=== PATIENT | male | born 1980 | race African-American/Black ===

== ENCOUNTER 2023-03-07 16:15 | Inpatient (IN) | payer OTHER ==
[2023-03-07 17:26] VITALS: BMI 23.8
[2023-03-07] MEDS ORDERED: ACETAMINOPHEN 325 MG TABLET (FP) PO PRN (19:32)
[2023-03-07] MEDS ORDERED: AMMONIUM LACTATE 12% LOTION 225 GM BOTTLE TP PRN (19:32)
[2023-03-07] MEDS ORDERED: guaiFENesin 600 MG TABLET.ER (FP) PO PRN (19:32)
[2023-03-07] MEDS ORDERED: LOPERAMIDE HCL 2 MG CAPSULE PO PRN (19:32)
[2023-03-07] MEDS ORDERED: NALOXONE HCL (KLOXXADO) 8 MG SPRAY NS PRN (19:32)
[2023-03-07] MEDS ORDERED: COLLOIDAL OATMEAL 1 BAR EACH TP PRN (19:32)
[2023-03-07] MEDS ORDERED: IBUPROFEN 400 MG TABLET (FP) PO PRN (19:32)
[2023-03-07] MEDS ORDERED: POLYETHYLENE GLYCOL (HEALTHYLAX) 3350 17 GM PACKET PO PRN (19:32)
[2023-03-07] MEDS ORDERED: BENZOCAINE/MENTHOL (CHLORASEPTIC ) LOZENGE MM PRN (19:32)
[2023-03-07] MEDS ORDERED: MAGNESIUM HYDROX 2400MG/30ML ORAL SUSPENSION 30 ML CUP PO PRN (19:32)
[2023-03-07] MEDS ORDERED: NALOXONE HCL 0.4 MG/ML VIAL IM PRN (19:32)
[2023-03-07] MEDS ORDERED: IBUPROFEN 600 MG TABLET (FP) PO PRN (19:32)
[2023-03-07] MEDS ORDERED: BENZONATATE 200 MG CAPSULE PO PRN (19:32)
[2023-03-07] MEDS ORDERED: P-EPHED 60MG/TRIPROLIDI 2.5MG TABLET PO PRN (19:32)
[2023-03-07] MEDS ORDERED: NICOTINE POLACRILEX 2 MG GUM BUC PRN (19:32)
[2023-03-07] MEDS ORDERED: TUBERCULIN PPD 5 TU/0.1ML VIAL ID ONE (21:48)
[2023-03-07] MEDS: THIAMINE HCL 100 MG TABLET (FP) PO SCH (22:17)
[2023-03-07] MEDS: MELATONIN 5 MG TABLETS PO SCH (22:17)
[2023-03-07] MEDS ORDERED: TUBERCULIN PPD 5 TU/0.1ML SYRINGE (IN PATIENT USE ONLY) ID ONE (23:55)
[2023-03-08 02:33] LABS: URINE APPEARANCE CLEAR; URINE BILIRUBIN NEGATIVE (NEGATIVE); URINE COLOR YELLOW; URINE GLUCOSE (UA) NEGATIVE (NEGATIVE); URINE KETONE TRACE (NEGATIVE); URINE LEUK ESTERASE NEGATIVE (NEGATIVE); URINE NITRITE NEGATIVE (NEGATIVE); URINE PROTEIN NEGATIVE (NEGATIVE)
[2023-03-08] MEDS ORDERED: PRENATAL VITAMINS W/ FOLIC ACID TABLET (FP) PO SCH (10:00)
[2023-03-08] MEDS ORDERED: PRENATAL VITAMINS W/ FOLIC ACID TABLET (FP) PO PRN (12:47)
[2023-03-08 13:52] LABS: HEMOGLOBIN 11.7 GM/dL (11.7-16.9); MCH 22.4 pg (25.7-33.7); MCHC 32.4 g/dl (32.0-35.9); MEAN CELL VOLUME 69.1 fl (80-96); PLATELET COUNT 277 10^3/uL (134-434); RBC 5.21 M/mm3 (4.00-5.60); RDW 19.4 % (11.9-15.9); WHITE BLOOD COUNT 4.9 K/mm3 (4.0-10.0)
[2023-03-08 14:24] LABS: POTASSIUM 3.8 mmol/L (3.5-5.1)
[2023-03-08 14:26] LABS: CALCIUM 9.1 mg/dL (8.5-10.1)
[2023-03-08 14:27] LABS: ALBUMIN 3.6 g/dl (3.4-5.0); BLOOD UREA NITROGEN 19.1 mg/dL (7-18)
[2023-03-08 14:32] LABS: BILIRUBIN,TOTAL 0.2 mg/dL (0.2-1); TOT PROT 7.3 g/dl (6.4-8.2)
[2023-03-08 15:19] LABS: SYPHILIS W/ RPR CONF NON-REACTIVE (NONREACTIVE)
[2023-03-08] MEDS: THIAMINE HCL 100 MG TABLET (FP) PO SCH (21:48)
[2023-03-08] MEDS: MELATONIN 5 MG TABLETS PO SCH (21:48)
[2023-03-09] MEDS: MELATONIN 5 MG TABLETS PO SCH (21:33)
[2023-03-09] MEDS: THIAMINE HCL 100 MG TABLET (FP) PO SCH (21:33)
[2023-03-10] MEDS: MELATONIN 5 MG TABLETS PO SCH (21:14)
[2023-03-10] MEDS: THIAMINE HCL 100 MG TABLET (FP) PO SCH (21:14)
[2023-03-11] MEDS: MELATONIN 5 MG TABLETS PO SCH (21:41)
[2023-03-11] MEDS: THIAMINE HCL 100 MG TABLET (FP) PO SCH (21:41)
[2023-03-12] MEDS: MELATONIN 5 MG TABLETS PO SCH (21:07)
[2023-03-12] MEDS: THIAMINE HCL 100 MG TABLET (FP) PO SCH (21:07)
[2023-03-13] MEDS: THIAMINE HCL 100 MG TABLET (FP) PO SCH (21:26)
[2023-03-13] MEDS: MELATONIN 5 MG TABLETS PO SCH (21:26)
[2023-03-14] MEDS: THIAMINE HCL 100 MG TABLET (FP) PO SCH (21:07)
[2023-03-14] MEDS: MELATONIN 5 MG TABLETS PO SCH (21:07)
[2023-03-15] MEDS: MELATONIN 5 MG TABLETS PO SCH (21:39)
[2023-03-15] MEDS: THIAMINE HCL 100 MG TABLET (FP) PO SCH (21:39)
[2023-03-16] MEDS: THIAMINE HCL 100 MG TABLET (FP) PO SCH (21:40)
[2023-03-16] MEDS: MELATONIN 5 MG TABLETS PO SCH (21:40)
[2023-03-17] MEDS: MAG HYDROX/AL HYDROX/SIMETH 30 ML UNIT-DOSE CUP PO PRN (18:24)
[2023-03-17] MEDS: MELATONIN 5 MG TABLETS PO SCH (21:59)
[2023-03-17] MEDS: THIAMINE HCL 100 MG TABLET (FP) PO SCH (21:59)
[2023-03-17] MEDS: hydrOXYzine PAMOATE 25 MG CAPSULE (FP) PO PRN (21:59)
[2023-03-18] MEDS: THIAMINE HCL 100 MG TABLET (FP) PO SCH (21:02)
[2023-03-18] MEDS: MELATONIN 5 MG TABLETS PO SCH (21:02)
[2023-03-19] MEDS: MAG HYDROX/AL HYDROX/SIMETH 30 ML UNIT-DOSE CUP PO PRN (12:59)
[2023-03-19] MEDS: THIAMINE HCL 100 MG TABLET (FP) PO SCH (21:14)
[2023-03-19] MEDS: MELATONIN 5 MG TABLETS PO SCH (21:14)
[2023-03-20] MEDS: THIAMINE HCL 100 MG TABLET (FP) PO SCH (21:28)
[2023-03-20] MEDS: hydrOXYzine PAMOATE 25 MG CAPSULE (FP) PO PRN (21:28)
[2023-03-20] MEDS: MELATONIN 5 MG TABLETS PO SCH (21:28)
[2023-03-21] MEDS: MELATONIN 5 MG TABLETS PO SCH (21:50)
[2023-03-21] MEDS: THIAMINE HCL 100 MG TABLET (FP) PO SCH (21:50)
[2023-03-21] MEDS: hydrOXYzine PAMOATE 25 MG CAPSULE (FP) PO PRN (21:50)
[2023-03-22 06:34] VITALS: RESP 16
[2023-03-22] MEDS: MELATONIN 5 MG TABLETS PO SCH (21:02)
[2023-03-22] MEDS: THIAMINE HCL 100 MG TABLET (FP) PO SCH (21:03)
[2023-03-23] MEDS: THIAMINE HCL 100 MG TABLET (FP) PO SCH (21:50)
[2023-03-23] MEDS: MELATONIN 5 MG TABLETS PO SCH (21:50)
[2023-03-23] MEDS: hydrOXYzine PAMOATE 25 MG CAPSULE (FP) PO PRN (21:51)
[2023-03-24 06:22] VITALS: BP 108/77; PULSE 95; TEMP 97.8
== END 2023-03-24 09:24 | disposition home or self-care (01) | DRG 772 ==
LOC: YASAS 16:15 → Y3E 21:09
PROVIDERS: ADMIT Allergy & Immunology; ATTEND Psychiatry & Neurology Pain Medicine
PROC: HZ42ZZZ Group Counseling for Substance Abuse Treatment, Cognitive-Behavioral (ICD-10-PCS; principal; 2023-03-07)
DX: F14.20 Cocaine dependence, uncomplicated (principal); F17.210 Nicotine dependence, cigarettes, uncomplicated; F25.9 Schizoaffective disorder, unspecified; F43.10 Post-traumatic stress disorder, unspecified; Z86.59 Personal history of other mental and behavioral disorders
CPT/HCPCS: 36415; 80053; 81003; 85027; 86780; 86803; 87635

== ENCOUNTER 2023-04-29 16:17 | Inpatient (IN) | payer OTHER ==
[2023-04-29 16:57] VITALS: BMI 22.6
[2023-04-29] MEDS ORDERED: BENZONATATE 200 MG CAPSULE PO PRN (22:29)
[2023-04-29] MEDS ORDERED: ACETAMINOPHEN 325 MG TABLET (FP) PO PRN (22:29)
[2023-04-29] MEDS ORDERED: IBUPROFEN 400 MG TABLET (FP) PO PRN (22:29)
[2023-04-29] MEDS ORDERED: IBUPROFEN 600 MG TABLET (FP) PO PRN (22:29)
[2023-04-29] MEDS ORDERED: COLLOIDAL OATMEAL 1 BAR EACH TP PRN (22:29)
[2023-04-29] MEDS ORDERED: hydrOXYzine PAMOATE 25 MG CAPSULE (FP) PO PRN (22:29)
[2023-04-29] MEDS ORDERED: POLYETHYLENE GLYCOL (HEALTHYLAX) 3350 17 GM PACKET PO PRN (22:29)
[2023-04-29] MEDS ORDERED: MAGNESIUM HYDROX 2400MG/30ML ORAL SUSPENSION 30 ML CUP PO PRN (22:29)
[2023-04-29] MEDS ORDERED: LOPERAMIDE HCL 2 MG CAPSULE PO PRN (22:29)
[2023-04-29] MEDS ORDERED: MAG HYDROX/AL HYDROX/SIMETH 30 ML UNIT-DOSE CUP PO PRN (22:29)
[2023-04-29] MEDS: MELATONIN 5 MG TABLETS PO SCH (23:02)
[2023-04-30] MEDS: BENZOCAINE/MENTHOL (CHLORASEPTIC ) LOZENGE MM PRN ×4 (07:23→21:15)
[2023-04-30] MEDS: PRENATAL VITAMINS W/ FOLIC ACID TABLET (FP) PO SCH (10:14)
[2023-04-30 11:47] LABS: HEMATOCRIT 37.8 % (35.4-49); HEMOGLOBIN 11.9 GM/dL (11.7-16.9); MCH 23.4 pg (25.7-33.7); MCHC 31.6 g/dl (32.0-35.9); MEAN CELL VOLUME 74.1 fl (80-96); MEAN PLT VOLUME 8.1 fl (7.5-11.1); PLATELET COUNT 339 10^3/uL (134-434); WHITE BLOOD COUNT 5.4 K/mm3 (4.0-10.0)
[2023-04-30 12:00] LABS: POTASSIUM 4.5 mmol/L (3.5-5.1)
[2023-04-30 12:03] LABS: ALBUMIN 3.1 g/dl (3.4-5.0); CALCIUM 8.6 mg/dL (8.5-10.1)
[2023-04-30 12:04] LABS: BLOOD UREA NITROGEN 17.9 mg/dL (7-18)
[2023-04-30 12:06] LABS: CREATININE 0.9 mg/dL (0.55-1.3)
[2023-04-30 12:08] LABS: BILIRUBIN,TOTAL 0.2 mg/dL (0.2-1); TOT PROT 6.8 g/dl (6.4-8.2)
[2023-04-30] MEDS: guaiFENesin 600 MG TABLET.ER (FP) PO PRN (17:05)
[2023-04-30 21:04] LABS: URINE APPEARANCE Clear; URINE BILIRUBIN Negative (NEGATIVE); URINE COLOR Yellow; URINE GLUCOSE (UA) Negative (NEGATIVE); URINE KETONE Negative (NEGATIVE); URINE LEUK ESTERASE Negative (NEGATIVE); URINE NITRITE Negative (NEGATIVE); URINE PROTEIN Negative (NEGATIVE); URINE UROBILINOGEN 0.2 mg/dL (0.2-1.0)
[2023-04-30] MEDS: MELATONIN 5 MG TABLETS PO SCH (21:14)
[2023-04-30] MEDS: THIAMINE HCL 100 MG TABLET (FP) PO SCH (21:14)
[2023-05-01] MEDS: BENZOCAINE/MENTHOL (CHLORASEPTIC ) LOZENGE MM PRN (06:31)
[2023-05-01] MEDS: guaiFENesin 600 MG TABLET.ER (FP) PO PRN (06:32)
[2023-05-01] MEDS: PRENATAL VITAMINS W/ FOLIC ACID TABLET (FP) PO SCH (09:46)
[2023-05-01] MEDS: THIAMINE HCL 100 MG TABLET (FP) PO SCH (21:56)
[2023-05-01] MEDS: MELATONIN 5 MG TABLETS PO SCH (21:56)
[2023-05-02] MEDS: PRENATAL VITAMINS W/ FOLIC ACID TABLET (FP) PO SCH (10:09)
[2023-05-02] MEDS: MELATONIN 5 MG TABLETS PO SCH (21:08)
[2023-05-02] MEDS: THIAMINE HCL 100 MG TABLET (FP) PO SCH (21:08)
[2023-05-03] MEDS: PRENATAL VITAMINS W/ FOLIC ACID TABLET (FP) PO SCH (10:28)
[2023-05-03] MEDS: THIAMINE HCL 100 MG TABLET (FP) PO SCH (21:03)
[2023-05-03] MEDS: MELATONIN 5 MG TABLETS PO SCH (21:03)
[2023-05-04] MEDS: PRENATAL VITAMINS W/ FOLIC ACID TABLET (FP) PO SCH (09:41)
[2023-05-04] MEDS: MELATONIN 5 MG TABLETS PO SCH (21:20)
[2023-05-04] MEDS: THIAMINE HCL 100 MG TABLET (FP) PO SCH (21:20)
[2023-05-05 07:20] VITALS: BP 100/68; PULSE 76; RESP 18; TEMP 97.6
[2023-05-05] MEDS: PRENATAL VITAMINS W/ FOLIC ACID TABLET (FP) PO SCH (09:39)
== END 2023-05-05 13:05 | disposition home or self-care (01) | DRG 772 ==
LOC: YASAS 16:17 → Y3W 22:09
PROVIDERS: ADMIT Allergy & Immunology; ATTEND Psychiatry & Neurology Pain Medicine
PROC: HZ42ZZZ Group Counseling for Substance Abuse Treatment, Cognitive-Behavioral (ICD-10-PCS; principal; 2023-04-29)
DX: F14.20 Cocaine dependence, uncomplicated (principal); F17.210 Nicotine dependence, cigarettes, uncomplicated; F25.9 Schizoaffective disorder, unspecified; Z86.59 Personal history of other mental and behavioral disorders
CPT/HCPCS: 26055; 36415; 80053; 81003; 85027; 86780; 87635

== ENCOUNTER 2023-08-06 13:00 | Inpatient (IN) | payer OTHER ==
[2023-08-06 13:44] VITALS: BMI 21.6
[2023-08-06] MEDS ORDERED: LOPERAMIDE HCL 2 MG CAPSULE PO PRN (16:51)
[2023-08-06] MEDS ORDERED: guaiFENesin 600 MG TABLET.ER (FP) PO PRN (16:51)
[2023-08-06] MEDS ORDERED: MAG HYDROX/AL HYDROX/SIMETH 30 ML UNIT-DOSE CUP PO PRN (16:51)
[2023-08-06] MEDS ORDERED: BENZONATATE 200 MG CAPSULE PO PRN (16:51)
[2023-08-06] MEDS ORDERED: NALOXONE HCL (KLOXXADO) 8 MG SPRAY NS PRN (16:51)
[2023-08-06] MEDS ORDERED: POLYETHYLENE GLYCOL (HEALTHYLAX) 3350 17 GM PACKET PO PRN (16:51)
[2023-08-06] MEDS ORDERED: NALOXONE HCL 0.4 MG/ML VIAL IM PRN (16:51)
[2023-08-06] MEDS ORDERED: MAGNESIUM HYDROX 2400MG/30ML ORAL SUSPENSION 30 ML CUP PO PRN (16:51)
[2023-08-06] MEDS: MELATONIN 5 MG TABLETS PO SCH (22:07)
[2023-08-06] MEDS: THIAMINE HCL 100 MG TABLET (FP) PO SCH (22:07)
[2023-08-07] MEDS: PRENATAL VITAMINS W/ FOLIC ACID TABLET (FP) PO SCH (10:03)
[2023-08-07 11:46] LABS: PH,URINE 5.5 (5.0-8.0); URINE APPEARANCE CLEAR; URINE BILIRUBIN NEGATIVE (NEGATIVE); URINE COLOR YELLOW; URINE GLUCOSE (UA) NEGATIVE (NEGATIVE); URINE KETONE NEGATIVE (NEGATIVE); URINE LEUK ESTERASE NEGATIVE (NEGATIVE); URINE NITRITE NEGATIVE (NEGATIVE); URINE PROTEIN NEGATIVE (NEGATIVE); URINE UROBILINOGEN 0.2 mg/dL (0.2-1.0)
[2023-08-07 15:13] LABS: HEMATOCRIT 41.1 % (35.4-49); HEMOGLOBIN 12.9 GM/dL (11.7-16.9); MCH 25.1 pg (25.7-33.7); MCHC 31.5 g/dl (32.0-35.9); MEAN CELL VOLUME 79.9 fl (80-96); MEAN PLT VOLUME 8.5 fl (7.5-11.1); PLATELET COUNT 290 10^3/uL (134-434); RBC 5.14 M/mm3 (4.00-5.60); WHITE BLOOD COUNT 5.5 K/mm3 (4.0-10.0)
[2023-08-07 15:25] LABS: CHLORIDE 106 mmol/L (98-107); POTASSIUM 4.5 mmol/L (3.5-5.1); SODIUM 136 mmol/L (136-145)
[2023-08-07 15:27] LABS: ALBUMIN 3.4 g/dl (3.4-5.0); ANION GAP 5 mmol/L (4-13); BLOOD UREA NITROGEN 15.3 mg/dL (7-18); CALCIUM 8.9 mg/dL (8.5-10.1); CO2 25 mmol/L (21-32); GLUCOSE,RANDOM 84 mg/dL (74-106)
[2023-08-07 15:30] LABS: CREATININE 0.9 mg/dL (0.55-1.3); SGOT/AST 19 U/L (15-37); SGPT/ALT 27 U/L (13-61)
[2023-08-07 15:32] LABS: BILIRUBIN,TOTAL 0.1 mg/dL (0.2-1); TOT PROT 7.4 g/dl (6.4-8.2)
[2023-08-07 15:33] LABS: ALK PHOS 100 U/L (45-117)
[2023-08-07 15:51] LABS: SYPHILIS W/ RPR CONF NON-REACTIVE (NONREACTIVE)
[2023-08-08] MEDS: FERROUS SO4 300 MG/5 ML ORAL SOLN UNIT DOSE CUPS PO SCH (12:17)
[2023-08-08] MEDS: SUVOREXANT 5 MG TABLET PO PRN (21:29)
[2023-08-10] MEDS: IBUPROFEN 600 MG TABLET (FP) PO PRN (09:19)
[2023-08-14] MEDS: SUVOREXANT 5 MG TABLET PO PRN (21:18)
[2023-08-14] MEDS: hydrOXYzine PAMOATE 25 MG CAPSULE (FP) PO PRN (21:18)
[2023-08-19] MEDS: SUVOREXANT 5 MG TABLET PO PRN (21:21)
[2023-08-22] MEDS: IBUPROFEN 400 MG TABLET (FP) PO PRN (15:56)
[2023-08-25] MEDS: SUVOREXANT 5 MG TABLET PO PRN (21:40)
[2023-08-28] MEDS: SUVOREXANT 5 MG TABLET PO PRN (21:25)
[2023-08-29] MEDS: BENZOCAINE/MENTHOL (CHLORASEPTIC ) LOZENGE MM PRN (14:30)
[2023-08-31] MEDS: AMOXICILLIN 500 MG CAPSULE (FP) PO SCH (21:27)
[2023-08-31] MEDS: SUVOREXANT 5 MG TABLET PO PRN (21:30)
[2023-09-01] MEDS: ACETAMINOPHEN 325 MG TABLET (FP) PO PRN (21:17)
[2023-09-02 07:52] VITALS: BP 105/73; PULSE 94; RESP 18; TEMP 98
== END 2023-09-02 09:40 | disposition home or self-care (01) | DRG 774 ==
LOC: YASAS 13:00 → Y3E 18:57
PROVIDERS: ADMIT Allergy & Immunology; ATTEND Psychiatry & Neurology Pain Medicine
PROC: HZ42ZZZ Group Counseling for Substance Abuse Treatment, Cognitive-Behavioral (ICD-10-PCS; principal; 2023-08-06)
DX: F14.10 Cocaine abuse, uncomplicated (principal); F17.210 Nicotine dependence, cigarettes, uncomplicated; F25.9 Schizoaffective disorder, unspecified; G47.00 Insomnia, unspecified; J03.80 Acute tonsillitis due to other specified organisms; Z86.59 Personal history of other mental and behavioral disorders; Z86.19 Personal history of other infectious and parasitic diseases
CPT/HCPCS: 0241U-QW; 36415; 80053; 80307; 81003; 85027; 86780; 86803; 87635; 87651

== ENCOUNTER 2024-08-31 10:22 | Inpatient (IN) | payer OTHER ==
[2024-08-31 11:06] VITALS: BMI 30.4
[2024-08-31] MEDS ORDERED: ACETAMINOPHEN 325 MG TABLET (FP) PO PRN (11:56)
[2024-08-31] MEDS ORDERED: MAGNESIUM HYDROX 2400MG/30ML ORAL SUSPENSION 30 ML CUP PO PRN (11:56)
[2024-08-31] MEDS ORDERED: MAG HYDROX/AL HYDROX/SIMETH 30 ML UNIT-DOSE CUP PO PRN (11:56)
[2024-08-31] MEDS ORDERED: IBUPROFEN 400 MG TABLET (FP) PO PRN (11:56)
[2024-08-31] MEDS ORDERED: POLYETHYLENE GLYCOL (HEALTHYLAX) 3350 17 GM PACKET PO PRN (11:56)
[2024-08-31] MEDS ORDERED: LOPERAMIDE HCL 2 MG CAPSULE PO PRN (11:56)
[2024-08-31] MEDS ORDERED: NICOTINE POLACRILEX 2 MG LOZENGE BC PRN (11:56)
[2024-08-31] MEDS ORDERED: NICOTINE POLACRILEX 2 MG GUM BUC PRN (11:56)
[2024-08-31] MEDS ORDERED: DOCUSATE SODIUM 100 MG CAPSULE (FP) PO PRN (11:56)
[2024-08-31] MEDS ORDERED: guaiFENesin 600 MG TABLET.ER (FP) PO PRN (11:56)
[2024-08-31] MEDS ORDERED: NALOXONE (NARCAN) HCL 4 MG/0.1 ML SPRAY NS PRN (11:56)
[2024-08-31] MEDS ORDERED: TUBERCULIN PPD 5 TU/0.1ML VIAL ID ONE (15:09)
[2024-08-31] MEDS: TUBERCULIN PPD 5 TU/0.1ML SYRINGE (IN PATIENT USE ONLY) ID ONE (15:14)
[2024-08-31] MEDS: MELATONIN 5 MG TABLETS PO SCH (21:37)
[2024-08-31] MEDS: THIAMINE 100 MG TABLET PO SCH (21:37)
[2024-09-01 10:35] LABS: BLOOD UREA NITROGEN 22.8 mg/dL (7-18)
[2024-09-01 10:37] LABS: ALBUMIN 3.5 g/dl (3.4-5.0); CALCIUM 9.1 mg/dL (8.5-10.1)
[2024-09-01 10:40] LABS: BILIRUBIN,TOTAL 0.4 mg/dL (0.2-1); CREATININE 0.9 mg/dL (0.55-1.3); TOT PROT 6.4 g/dl (6.4-8.2)
[2024-09-01 10:48] LABS: HEMATOCRIT 41.3 % (35.4-49); HEMOGLOBIN 13.9 GM/dL (11.7-16.9); MCH 28.1 pg (25.7-33.7); MCHC 33.5 g/dl (32.0-35.9); MEAN CELL VOLUME 83.9 fl (80-96); MEAN PLT VOLUME 8.1 fl (7.5-11.1); PLATELET COUNT 251 10^3/uL (134-434); RBC 4.92 M/mm3 (4.00-5.60); RDW 13.9 % (11.9-15.9); WHITE BLOOD COUNT 5.4 K/mm3 (4.0-10.0)
[2024-09-01] MEDS: PRENATAL VITAMINS W/ FOLIC ACID TABLET (FP) PO SCH (10:54)
[2024-09-01] MEDS: BENZOCAINE/MENTHOL (CHLORASEPTIC ) LOZENGE MM PRN (10:55)
[2024-09-01] MEDS: BENZONATATE 200 MG CAPSULE PO PRN (13:02)
[2024-09-01 18:51] LABS: PH,URINE 5.5 (5.0-8.0); URINE APPEARANCE CLEAR; URINE BILIRUBIN NEGATIVE (NEGATIVE); URINE COLOR YELLOW; URINE GLUCOSE (UA) NEGATIVE (NEGATIVE); URINE KETONE TRACE (NEGATIVE); URINE LEUK ESTERASE NEGATIVE (NEGATIVE); URINE NITRITE NEGATIVE (NEGATIVE); URINE PROTEIN NEGATIVE (NEGATIVE)
[2024-09-03] MEDS ORDERED: BENZONATATE 200 MG CAPSULE PO PRN (14:00)
[2024-09-03] MEDS ORDERED: OXYMETAZOLINE 0.05% NASAL SOLUTION 15 ML BOTTLE NS PRN (14:01)
[2024-09-03] MEDS: guaiFENesin 600 MG TABLET.ER (FP) PO PRN (17:06)
[2024-09-04] MEDS: IBUPROFEN 600 MG TABLET (FP) PO PRN (19:10)
[2024-09-05] MEDS: guaiFENesin 200 MG/10 ML 10 ML UNIT-DOSE CUPS PO PRN (10:27)
[2024-09-08] MEDS: hydrOXYzine PAMOATE 25 MG CAPSULE (FP) PO PRN (23:30)
[2024-09-10] MEDS ORDERED: HYDROCORTISONE 1% TOPICAL CREAM 30 GM TUBE TP PRN (11:25)
[2024-09-12] MEDS: CALAMINE 8% TOPICAL LOTION 177 ML BOTTLE TP PRN (09:56)
[2024-09-26 05:16] VITALS: RESP 16; TEMP 97.5
[2024-09-27 06:16] VITALS: BP 108/63; PULSE 77
== END 2024-09-27 10:26 | disposition home or self-care (01) | DRG 772 ==
LOC: YASAS 10:22 → Y3W 13:21
PROVIDERS: ADMIT Psychiatry & Neurology Pain Medicine; ATTEND Psychiatry & Neurology Pain Medicine
PROC: HZ42ZZZ Group Counseling for Substance Abuse Treatment, Cognitive-Behavioral (ICD-10-PCS; principal; 2024-08-31)
DX: F14.20 Cocaine dependence, uncomplicated (principal); F17.210 Nicotine dependence, cigarettes, uncomplicated; F43.10 Post-traumatic stress disorder, unspecified; G47.00 Insomnia, unspecified; J06.9 Acute upper respiratory infection, unspecified; Z86.19 Personal history of other infectious and parasitic diseases; Z59.01 Sheltered homelessness
CPT/HCPCS: 0241U-QW; 36415; 80053; 80305; 81003; 85027; 86780; 87811; 93005; 93010